=== PATIENT | female | born 1940 | race Caucasian/White ===

== ENCOUNTER → 2017-06-10 12:51 | Outpatient (CLI) | payer MEDICARE ==
[2010-07-14 12:02] VITALS: BMI 40.3
[2017-06-10 15:37] LABS: INR 1.22 (0.85-1.17); PROTIME 14.9 SECONDS (11.6-15.0)
== END | disposition home or self-care (01) ==
LOC: D.LABREF 12:51
PROVIDERS: Pediatrics
DX: Z51.81 Encounter for therapeutic drug level monitoring (principal); Z79.01 Long term (current) use of anticoagulants; I48.91 Unspecified atrial fibrillation

== ENCOUNTER → 2017-07-04 15:40 | Outpatient (CLI) | payer MEDICARE ==
[2010-07-14 12:02] VITALS: BMI 40.3
[2017-07-04 17:49] LABS: INR 3.16 (0.85-1.17); PROTIME 31.6 SECONDS (11.6-15.0)
== END | disposition home or self-care (01) ==
LOC: D.LABREF 15:40
PROVIDERS: Pediatrics
DX: I48.0 Paroxysmal atrial fibrillation (principal)

== ENCOUNTER → 2017-07-22 18:47 | Outpatient (CLI) | payer MEDICARE ==
[2010-07-14 12:02] VITALS: BMI 40.3
[2017-07-22 19:19] LABS: INR 4.93 (0.85-1.17)
== END | disposition home or self-care (01) ==
LOC: D.LABREF 18:47
PROVIDERS: Pediatrics
DX: I48.0 Paroxysmal atrial fibrillation (principal)

== ENCOUNTER → 2017-07-29 14:15 | Outpatient (CLI) | payer MEDICARE ==
[2010-07-14 12:02] VITALS: BMI 40.3
[2017-07-29 15:17] LABS: INR 2.98 (0.85-1.17); PROTIME 30.3 SECONDS (11.6-15.0)
== END | disposition home or self-care (01) ==
LOC: D.LABREF 14:15
PROVIDERS: Pediatrics
DX: Z51.81 Encounter for therapeutic drug level monitoring (principal); Z79.01 Long term (current) use of anticoagulants